=== PATIENT | male | born 1985 | race African-American/Black ===

== ENCOUNTER 2022-05-31 14:37 | Emergency (ER) | payer SELFPAY ==
[~2022-05-31] VITALS: Ht 172.7 cm; Wt 95.0 kg
[2022-05-31 14:39] VITALS: BP 163/107
== END 2022-05-31 18:20 | disposition left against medical advice (07) ==
LOC: ER 15:39
DX: Z53.21 Procedure and treatment not carried out due to patient leaving prior to being seen by health care provider (principal)
CPT/HCPCS: 99281